=== PATIENT | female | born 1955 | race Caucasian/White ===

== ENCOUNTER 2018-05-16 17:50 | Emergency (ER) | payer SELFPAY ==
[~2018-05-16] VITALS: Ht 165.1 cm; Wt 81.6 kg
[2018-05-16] MEDS ORDERED: ACETAMINOPHEN 325 MG TAB PO ONE (18:15)
[2018-05-16] MEDS ORDERED: CLINDAMYCIN HC300 MG PO (18:27)
[2018-05-16] MEDS ORDERED: CLINDAMYCIN PHOS 600 MG/ 4 ML VIAL IM ONE (18:30)
[2018-05-16 18:38] LABS: STREPTOCOCCUS GRP A ANTIGEN NEGATIVE (NEGATIVE)
[2018-05-16 18:59] LABS: INFLUENZAE A&B ANTIGEN (RAPID) NEGATIVE (NEGATIVE)
[2018-05-16 20:57] VITALS: BP 121/81
== END 2018-05-16 20:20 | disposition home or self-care (01) ==
LOC: ER 17:50
DX: R50.9 Fever, unspecified (principal); J02.9 Acute pharyngitis, unspecified; H92.01 Otalgia, right ear
CPT/HCPCS: 83518; 87070; 87400; 96372; 99283